=== PATIENT | male | born 1995 | race Caucasian/White ===

== ENCOUNTER 2022-02-02 02:11 | Emergency (ER) | payer OTHER ==
[~2022-02-02] VITALS: Ht 185.4 cm; Wt 77.1 kg
[2022-02-02 02:20] VITALS: BP_SYST 111
[2022-02-02] MEDS ORDERED: iohexoL 350 mgI/mL, 100 ML INFUS..BTL IV ONE (03:15)
[2022-02-02 03:22] LABS: BASOPHILS # (AUTO) 0.1 K/uL (0.0-0.2); BASOPHILS % (AUTO) 0.5 % (0.0-2.0); EOSINOPHILS # (AUTO) 0.4 K/uL (0.0-0.4); HEMATOCRIT 44.2 % (36-54); HEMOGLOBIN 14.9 g/dL (14.0-18.0); LYMPHOCYTES # (AUTO) 2.5 K/uL (1.0-5.5); LYMPHOCYTES % (AUTO) 21.1 % (20.5-51.5); MEAN CORPUSCULAR HEMOGLOBIN 28 pg (27-31); MEAN CORPUSCULAR HGB CONC 34 % (32-36); MEAN CORPUSCULAR VOLUME 82 fL (79.0-98.0); NEUTROPHILS # (AUTO) 7.7 K/uL (1.8-7.7); NEUTROPHILS % (AUTO) 66.4 % (40.0-70.0); PLATELET COUNT (AUTO) 308 K/uL (130-430); RED BLOOD CELL COUNT(AUTO) 5.42 MIL/uL (4.2-6.2); RED CELL DISTRIBUTION WIDTH 15.6 % (9.0-15.0); WHITE BLOOD COUNT (AUTO) 11.6 K/uL (4.8-10.8)
--- NOTE | 2022-02-02 03:25 | NUR ---
BIBA for CP. NSR, w rvr. PT good recall of events. pt gone for CT, pt denies any known medical history
[2022-02-02 03:30] LABS: ANION GAP 6 (5-15); CALCIUM 8.8 mg/dL (8.4-11.0); CHLORIDE 102 mmol/L (98-107); CREATININE 1.29 mg/dL (0.55-1.30); GFR AFRICAN AMERICAN 87 mL/min (>90); GLUCOSE 125 mg/dL (70-99); UREA NITROGEN, BLOOD 16 mg/dL (8-21)
[2022-02-02 03:31] LABS: ALANINE AMINOTRANSFERASE 29 U/L (12-78); ALBUMIN 3.3 g/dL (3.4-4.8); ASPARTATE AMINOTRANSFERASE 30 U/L (10-37); TOTAL BILIRUBIN 0.5 mg/dL (0.0-1.0)
[2022-02-02] MEDS ORDERED: KETOROLAC TROMETHAMINE 15 MG VIAL IVP ONE (04:45)
[2022-02-02] MEDS ORDERED: KETOROLAC TROMETHAMINE 15 MG VIAL ONE (05:07)
--- NOTE | 2022-02-02 06:00 | NUR ---
PT DISCHARGE HOME WITH FAMILY . FOLLOW UP [facility]OTH [facility]
--- NOTE | 2022-02-02 06:18 | NUR ---
AWAITING CT RESULTS
[2022-02-02 06:50] VITALS: BP_SYST 126
== END 2022-02-02 06:50 | disposition home or self-care (01) ==
LOC: SED 02:11
DX: R07.89 Other chest pain (principal); R06.02 Shortness of breath; R61 Generalized hyperhidrosis; Z72.0 Tobacco use; Z79.899 Other long term (current) drug therapy
CPT/HCPCS: 99285; 71275; 71045; 80053; 83880; 85025; 84484; 36415; 93005; 76376; Q9967; J1885